=== PATIENT | female | born 2000 | race Two or more races ===

== ENCOUNTER 2022-05-21 18:00 | Emergency (ER) | payer OTHER ==
[~2022-05-21] VITALS: Ht 170.2 cm; Wt 55.3 kg
--- NOTE | 2022-05-21 18:10 | NUR ---
BIBFAMILY C/O LLQ PAIN X 5 DAYS, DENIES ACCOMPANYING SX. AMBULATORY, PLACED IN BED, AAOX4, IN PAIN 5/10 PS.
--- NOTE | 2022-05-21 18:19 | NUR ---
URINE SAMPE SENT TO LAB
--- NOTE | 2022-05-21 18:45 | NUR ---
[facility]PER[facility]OR DELIVERY DEPARTMENT AT BEDSIDE
[2022-05-21 19:14] LABS: ALBUMIN 4.4 g/dL (3.4-5.0); BILIRUBIN,DIRECT 0.2 mg/dL (0.0-0.2); BILIRUBIN,TOTAL 0.8 mg/dL (0.2-1.0); CALCIUM, SERUM 9.3 mg/dL (8.5-10.1); CREATININE 0.9 mg/dL (0.6-1.3); POTASSIUM 3.5 mmol/L (3.5-5.1)
[2022-05-21 19:18] LABS: BILIRUBIN,URINE NEGATIVE (NEGATIVE); COLOR,URINE YELLOW (YELLOW); LEUKOCYTE ESTERASE ,URINE NEGATIVE (NEGATIVE); NITRITE, URINE NEGATIVE (NEGATIVE); PROTEIN,URINE NEGATIVE (NEGATIVE); UGLUCOSE NEGATIVE (NEGATIVE); UROBILINOGEN,URINE 0.2 EU/dL (0.2)
--- NOTE | 2022-05-21 19:45 | NUR ---
PATIENT TAKEN TO CT VIA [facility]
[2022-05-21 20:44] LABS: HEMATOCRIT 37 % (33-45); HEMOGLOBIN 12.5 g/dL (11.5-14.8); MEAN CORPUSCULAR VOLUME 91 fL (82-100); RED BLOOD CELL COUNT(AUTO) 4.11 MIL/uL (4.0-5.2); WHITE BLOOD COUNT (AUTO) 6.3 K/uL (4.3-11.0)
[2022-05-21 20:45] LABS: BASOPHILS % (AUTO) 0.3 % (0.0-2.0); EOSINOPHILS % (AUTO) 0.3 % (0.0-6.0); LYMPHOCYTES # (AUTO) 1.8 K/uL (0.8-4.8); LYMPHOCYTES % (AUTO) 29.2 % (20.0-44.0); MEAN CORPUSCULAR HGB CONC 34 g/dl (31.0-36.0); MONOCYTES # (AUTO) 0.4 K/uL (0.1-1.30); MONOCYTES % (AUTO) 6.7 % (2.0-12.0); NEUTROPHILS % (AUTO) 63.5 % (43.0-81.0); PLATELET COUNT (AUTO) 183 K/uL (150-450)
--- NOTE | 2022-05-21 22:05 | NUR ---
Patient discharged to home in stable condition. Written and verbal after care instructions given. Patient verbalizes understanding of instruction.
[2022-05-21 22:11] VITALS: BP 110/75
== END 2022-05-21 22:05 | disposition home or self-care (01) ==
LOC: ER 18:14
DX: N83.202 Unspecified ovarian cyst, left side (principal); R10.30 Lower abdominal pain, unspecified
CPT/HCPCS: 36415; 80048-TC; 80076-TC; 83690-TC; 84702-TC; 84703-TC; 85025-TC; 87086-TC